=== PATIENT | male | born 1990 | race Caucasian/White ===

== ENCOUNTER 2021-04-18 19:07 | Emergency (ER) | payer BC ==
[2021-04-18 19:46] LABS: HEMOGLOBIN 16.7 gm/dl (14.0-17.5); RED BLOOD COUNT 5.56 M/UL (4.20-5.50); WHITE BLOOD COUNT 8.9 K/UL (4.5-11.0)
[2021-04-18 20:06] LABS: BUN/CREATININE RATIO 10 (0-10)
== END 2021-04-18 22:30 | disposition home or self-care (01) ==
LOC: ER1 19:07
PROVIDERS: Emergency Medicine
DX: R10.13 Epigastric pain (principal); Z88.0 Allergy status to penicillin; Z88.2 Allergy status to sulfonamides
CPT/HCPCS: 80053; 81001; 83690; 85025; 99284; Q9967

== ENCOUNTER → 2021-05-05 | Outpatient (CLI) | payer BC | LOC: KOH-I 08:00 | DX: R10.11 Right upper quadrant pain (principal); K82.8 Other specified diseases of gallbladder | CPT/HCPCS: 76705 ==

== ENCOUNTER 2021-06-04 13:25 | Emergency (ER) | payer BC ==
[2021-06-04 14:53] LABS: RED BLOOD COUNT 6.25 M/UL (4.20-5.50); WHITE BLOOD COUNT 10.1 K/UL (4.5-11.0)
[2021-06-04 15:14] LABS: BUN/CREATININE RATIO 10 (0-10)
[2021-06-04] MEDS ORDERED: BUSPIRONE HCL5 MG PO (19:04)
== END 2021-06-04 20:40 | disposition home or self-care (01) ==
LOC: ER1 13:25
PROVIDERS: Physician Assistant Medical
DX: R07.89 Other chest pain (principal); R00.2 Palpitations; E86.0 Dehydration; F41.9 Anxiety disorder, unspecified; Z88.8 Allergy status to other drugs, medicaments and biological substances
CPT/HCPCS: 71045; 80053; 82550; 82553; 83874; 84439; 84443; 84484; 85025; 85379; 93005; 99285; J7030

== ENCOUNTER 2021-06-14 10:41 | Emergency (ER) | payer BC ==
[~2021-06-14 10:41] MED LIST changes: -VISTARIL25 MG PO
[2021-06-14 12:32] LABS: HEMOGLOBIN 19.5 gm/dl (14.0-17.5); RED BLOOD COUNT 6.53 M/UL (4.20-5.50); WHITE BLOOD COUNT 8.5 K/UL (4.5-11.0)
[2021-06-14 12:59] LABS: BUN/CREATININE RATIO 6 (0-10)
[2021-06-14] MEDS ORDERED: VISTARIL25 MG PO (14:54)
== END 2021-06-14 15:07 | disposition home or self-care (01) ==
LOC: ER1 10:41
PROVIDERS: Physician Assistant
DX: R00.0 Tachycardia, unspecified (principal); R91.1 Solitary pulmonary nodule
CPT/HCPCS: 80053; 80307; 81001; 82550; 82553; 84484; 85025; 93005; 99285; Q9967

== ENCOUNTER → 2021-06-14 | Outpatient (CLI) | payer BC ==
[~2021-06-14] MED LIST: BUSPIRONE HCL5 MG PO; VISTARIL25 MG PO
== END ==
LOC: HEART 5 15:40
DX: I49.8 Other specified cardiac arrhythmias (principal)

== ENCOUNTER → 2021-06-29 | Outpatient (CLI) | payer BC ==
[~2021-06-29] MED LIST changes: +VISTARIL25 MG PO
== END ==
LOC: ECHO 09:00 → CATH 10:00
DX: R00.0 Tachycardia, unspecified (principal)
CPT/HCPCS: ECHO; 93306